=== PATIENT | male | born 1950 | race Caucasian/White ===

== ENCOUNTER 2021-02-08 13:31 | Emergency (ER) | payer OTHER ==
[2021-02-08] MEDS ORDERED: LIDOCAINE 1% MPF 30 ML VIAL ONE (14:31)
[2021-02-08] MEDS ORDERED: TETANUS & DIPHTHERIA TOX,ADULT 0.5 ML VIAL ONE (14:31)
[2021-02-08] MEDS ORDERED: LIDOCAINE 1% W/EPI 1:100,000 MDV 20 ML VIAL ONE (14:38)
--- NOTE | 2021-02-08 15:15 | RAD REPORT ---
EXAM DESCRIPTION: RAD - Knee Right 3 View - 02/08/2021 3:10 pm CLINICAL HISTORY: PAIN COMPARISON: No comparisons FINDINGS: Status post right total knee arthroplasty. No evidence of hardware complications. No fract ure is seen. Prominent prepatellar soft tissue swelling. IMPRESSION: No acute osseous abnormality involving the right knee.
--- NOTE | 2021-02-08 15:15 | RAD REPORT ---
EXAM DESCRIPTION: RAD - Tib Fib Left - 02/08/2021 3:09 pm CLINICAL HISTORY: PAIN COMPARISON: No comparisons FINDINGS: No fracture of the tibia or fibula is identified. Status post left total knee arthroplasty . No evidence for hardware complications. Reconstruction plate along the distal fibula without hardwa re complications. IMPRESSION: No acute osseous abnormality involving the tibia or fibula.
--- NOTE | 2021-02-08 16:25 | ER ---
Nurse's Notes [facility] Name: Bo Canas Age: 70 yrs Sex: Male : 1950 Arrival Date: 02/08/2021 Time: 13:38 Bed 16 Private MD: Diagnosis: Laceration without foreign body of lower leg;Pain in right knee;Skin tear right forearm Presentation: 02/08 13:40 Chief complaint: Right knee pain and swelling, laceration to left lower leg and right hb forearm after mechanical fall from standing. Coronavirus screen: At this time, the client does not indicate any symptoms associated with coronavirus-19. Ebola Screen: No symptoms or risks identified at this time. Initial Sepsis Screen: Does the patient meet any 2 criteria? No. Patient's initial sepsis screen is negative. Does the patient have a suspected source of infection? No. Patient's initial sepsis screen is negative. Risk Assessment: Do you want to hurt yourself or someone else? Patient reports no desire to harm self or others. Onset of symptoms was February 08, 2021. 13:40 Method Of Arrival: Wheelchair hb 13:40 Acuity: JENAE 4 hb - Immunization history:: Client reports receiving the 2nd dose of the Covid vaccine. - Social history:: Smoking status: Patient denies any tobacco usage or history of. Screenin:52 Abuse screen: Denies threats or abuse. Nutritional screening: No deficits noted. kh1 Tuberculosis screening: No symptoms or risk factors identified. Never had TB. Possible symptoms: None Risk factors: None. Fall Risk None identified. Fall in past 12 months (25 points). No secondary diagnosis (0 pts). No IV (0 pts). Ambulatory Aid- Crutches/Cane/Walker (15 pts). Gait- Normal/Bed Rest/Wheelchair (0 pts). Assessment: 13:52 General: Appears in no apparent distress. comfortable, Behavior is calm, cooperative, kh1 appropriate for age. Pain: Denies pain. Neuro: No deficits noted. Level of Consciousness is awake, alert, obeys commands, Oriented to person, place, time, situation, Appropriate for age Sign Installer are Reports. 15:00 Reassessment: Patient appears in no apparent distress at this time. No changes from kh1 previously documented assessment. Patient and/or family updated on plan of care and expected duration. Pain level reassessed. Patient is alert, oriented x 3, equal unlabored respirations, skin warm/dry/pink. Patient states symptoms have not improved. Vital Signs: 13:40 BP 120 / 73; Pulse 95; Resp 16; Temp 97.8; Pulse Ox 97% on R/A; Weight 112.94 kg; hb Height 6 ft. (182.88 cm); Pain 0/10; 13:53 BP 120 / 73; Pulse 95; Resp 18; Temp 97.8; Pulse Ox 97% on R/A; kh1 13:40 Body Mass Index 33.77 (112.94 kg, 182.88 cm) hb Vitals: 13:53 Cardiac Rhythm Assessment Regular. kh1 [place] Coma Score: 13:53 Eye Response: spontaneous(4). Verbal Response: oriented(5). Motor Response: obeys kh1 commands(6). Total: 15. ED Course: 13:38 Patient arrived in ED. hb 13:40 Arm band placed on. hb 13:42 Triage completed. hb 13:46 Doris Moraes is Primary Nurse. [facility] 13:50 Susy Varghese FNP-C is [facility]. kb 13:50 Jaxson Bhandari MD is Attending Physician. kb 13:54 Patient has correct armband on for positive identification. Fall risk band placed. Bed [facility] in low position. Call light in reach. Side rails up X 1. Adult w/ patient. quality assurance monitor final on. Pulse ox on. NIBP on. 15:09 Tib Fib Left XRAY In Process Unspecified. EDMS 15:10 Knee Right 3 View XRAY In Process Unspecified. EDMS 16:38 Assist provider with laceration repair on left leg that was using sutures. Set up tray. kh1 Performed by Susy JACKSON Dressed with 4X4s. Patient did not have IV access during this emergency room visit. 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 Exp: kh1 08/06/2022. Lot #: [id number]. } Route: IM; Site: left deltoid; Outcome: 16:24 Discharge ordered by MD. kb 16:39 Discharged to home ambulatory. kh1 16:39 Condition: good 16:39 Discharge instructions given to patient, Instructed on discharge instructions, follow up and referral plans. wound care, Demonstrated understanding of instructions, follow-up care, wound care. 16:42 Patient left the ED. kh1 Signatures: Dispatcher [employer] EDSusy Boyle, MANUEL CLINE-Juanita Caro RN RN Doris Dickens 1
--- NOTE | 2021-02-08 16:25 | EDPHYS ---
Physician Documentation [facility] Name: Bo Canas Age: 70 yrs Sex: Male : 1950 Arrival Date: 02/08/2021 Time: 13:38 Bed 16 Private MD: ED Physician Jaxson Bhandari HPI: 02/08 16:17 This 70 yrs old Male presents to ER via Wheelchair with complaints of kb Laceration To Leg. 16:17 The patient has a laceration related to: falling from a standing position, occurred at home, and there are no complicating factors. The injury was accidental. The laceration(s) is(are) located on the left baldwin and medial aspect of left calf. Onset: The symptoms/episode began/occurred just prior to arrival. Associated signs and symptoms: Pertinent positives: heavy bleeding, Pertinent negatives: deformity, dizziness, loss of consciousness, numbness distal to injury, suspected foreign body. The patient has not experienced similar symptoms in the past. The patient has not recently seen a physician. 16:29 Pt states he tripped and fell into the grill. Cut his leg on the metal part of the kb grill. - Immunization history:: Client reports receiving the 2nd dose of the Covid vaccine. - Social history:: Smoking status: Patient denies any tobacco usage or history of. ROS: 16:17 Constitutional: Negative for fever, chills, and weight loss. kb 16:17 MS/extremity: Positive for pain, swelling, tenderness, of the right knee. 16:17 Skin: Positive for laceration(s), of the left baldwin and medial aspect of left calf. 16:17 All other systems are negative. Exam: 16:16 Constitutional: This is a well developed, well nourished patient who is awake, alert, kb and in no acute distress. Head/Face: Normocephalic, atraumatic. ENT: Moist Mucous membranes Respiratory: Respirations even and unlabored. No increased work of breathing, no retractions or nasal flaring. Neuro: Awake and alert, GCS 15, oriented to person, place, time, and situation. Moves all extremities. Normal gait. Psych: Awake, alert, with orientation to person, place and time. Behavior, mood, and affect are within normal limits. 16:16 Musculoskeletal/extremity: Extremities: grossly normal except: noted in the right knee: pain, swelling, tenderness, ROM: intact in all extremities, Circulation is intact in all extremities. Sensation intact. 16:16 Skin: injury, laceration(s), the wound is approximately 2 cm(s), of the medial aspect of left calf, the second wound is approximately 5 cm(s), of the left baldwin, that can be described as clean, no foreign body, linear, with mild bleeding, with moderate bleeding, skin tear right forearm. Vital Signs: 13:40 BP 120 / 73; Pulse 95; Resp 16; Temp 97.8; Pulse Ox 97% on R/A; Weight 112.94 kg; hb Height 6 ft. (182.88 cm); Pain 0/10; 13:53 BP 120 / 73; Pulse 95; Resp 18; Temp 97.8; Pulse Ox 97% on R/A; kh1 13:40 Body Mass Index 33.77 (112.94 kg, 182.88 cm) hb [place] Coma Score: 13:53 Eye Response: spontaneous(4). Verbal Response: oriented(5). Motor Response: obeys kh1 commands(6). Total: 15. Laceration: 16:13 Wound Repair of 2cm ( 0.8in ) subcutaneous laceration to medial aspect of left calf. kb Linear shaped.. Distal neuro/vascular/tendon intact. Anesthesia: Wound infiltrated with 2 mls of 1% lidocaine w/ Epi. Wound prep: Extensive cleansing with betadine by me, Wound irrigation with saline by me. Skin closed with 3 4-0 Prolene using cruciate sutures. Patient tolerated well. 16:13 Wound Repair of 5cm ( 2.0in ) subcutaneous laceration to left baldwin. Linear shaped.. kb Distal neuro/vascular/tendon intact. Anesthesia: Wound infiltrated with 4 mls of 1% lidocaine w/ Epi. Wound prep: Extensive cleansing with betadine by me, Wound irrigation with saline by me. Skin closed with 7 4-0 Prolene using 3 interrupted sutures, 4 crutiate sutures. Patient tolerated well. MDM: 13:50 Patient medically screened. kb 16:13 Data reviewed: vital signs, nurses notes. Data interpreted: Pulse oximetry: on room air kb is 97 %. Interpretation: normal. Counseling: I had a detailed discussion with the patient and/or guardian regarding: the historical points, exam findings, and any diagnostic results supporting the discharge/admit diagnosis, radiology results, the need for outpatient follow up, a family practitioner, to return to the emergency department if symptoms worsen or persist or if there are any questions or concerns that arise at home. 17:30 Differential diagnosis: superficial laceration, fracture, foreign body. kb 02/08 13:58 Order name: Tib Fib Left XRAY; Complete Time: 15:20 kb 02/08 13:58 Order name: Knee Right 3 View XRAY; Complete Time: 15:20 kb 02/08 13:58 Order name: Dressing - Wound; Complete Time: 14:16 kb 02/08 13:58 Order name: Gloves, Sterile; Complete Time: 14:16 kb 02/08 13:58 Order name: Prolene, Sutures; Complete Time: 14:16 kb 02/08 13:58 Order name: Setup Suture Tray; Complete Time: 14:16 kb 02/08 16:25 Order name: Jean Wrap kb Administered Medications: 14:16 Drug: Lidocaine-Epinephrine -1%: (1:100,000) 1 vials Volume: 20 ml; Route: Infiltration;kh1 14:16 Drug: Tetanus-Diphtheria Toxoid Adult 0.5 ml {[employer] 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 Exp: kh1 08/06/2022. Lot #: [id number]. } Route: IM; Site: left deltoid; Disposition: 17:25 Co-signature as Attending Physician, Jaxson Bhandari MD I agree with the assessment and rn plan of care. Attestation: The patient's history, exam findings, diagnostics, and a summary of any interventions or procedures was reviewed in detail with Susy JACKSON. Disposition Summary: 02/08/21 16:24 Discharge Ordered Location: Home kb Condition: Stable kb Diagnosis - Laceration without foreign body of lower leg kb - Pain in right knee kb - Skin tear right forearm kb Followup: kb - With: Private Physician - When: 2 - 3 days - Reason: Recheck today's complaints, Continuance of care, Re-evaluation by your physician Followup: kb - With: Emergency Department - When: As needed - Reason: Worsening of condition Discharge Instructions: - Discharge Summary Sheet kb - Musculoskeletal Pain kb - Laceration Care, Adult, [id number] kb - Skin Tear, [id number] kb Forms: - Medication Reconciliation Form kb - Thank You Letter kb - Antibiotic Education kb - Prescription Opioid Use kb Signatures: Dispatcher [employer] Susy Allen, SON-C SON-Jaxson Acuna MD MD rn Baxter, Heather, RN RN hb Harris, Doris [facility]
[2021-02-08 16:48] VITALS: BP 120/73; TEMP 97.8; O2SAT 97
== END 2021-02-08 16:42 | disposition home or self-care (01) ==
LOC: ER 13:31
PROC: 0JQP0ZZ Repair Left Lower Leg Subcutaneous Tissue and Fascia, Open Approach (ICD-10-PCS; principal; 2021-02-08)
DX: S81.812A Laceration without foreign body, left lower leg, initial encounter (principal); S51.811A Laceration without foreign body of right forearm, initial encounter; W01.198A Fall on same level from slipping, tripping and stumbling with subsequent striking against other object, initial encounter; Y92.009 Unspecified place in unspecified non-institutional (private) residence as the place of occurrence of the external cause; Z23 Encounter for immunization
CPT/HCPCS: 90471; 90714; 99284

== ENCOUNTER → 2023-07-03 | Emergency (ER) | payer OTHER ==
[2023-07-03 11:44] LABS: Absolute Lymphocytes (CBC) 1.1 K/uL (0.7-4.9); Hematocrit 38.9 % (39.6-49.0); Lymphocytes % 20.9 % (15.3-44.8); MCV 81.9 fL (80-100); MPV 7.8 fL (7.6-11.3); Platelets 193 thou/uL (152-406); RBC Red Blood Cell Count 4.75 M/uL (4.33-5.43)
[2023-07-03 12:02] LABS: Albumin 3.2 g/dL (3.4-5.0); Bilirubin Direct 0.2 mg/dL (0-0.2); Bilirubin Indirect, Calculated 0.2 mg/dL (0.2-0.8); Bilirubin Total 0.4 mg/dL (0.2-1.0); Potassium 3.9 mEq/L (3.5-5.1); Protein, Total 7.1 g/dL (6.4-8.2); Troponin High Sensitivity 13.8 pg/mL (<58.9)
--- NOTE | 2023-07-03 12:39 | RAD REPORT ---
EXAM DESCRIPTION: RAD - Chest Single View - 07/03/2023 12:28 pm CLINICAL HISTORY: CHEST PAIN COMPARISON: No comparisons FINDINGS: Lines: None. Lungs: No evidence of edema or pneumonia. Pleural: No significant pleural effusions or pneumothorax. Cardiac: Cardiomegaly. Mediastinum: Within normal limits. Bones: No acute fractures. Other: None IMPRESSION: No acute cardiopulmonary disease.
--- NOTE | 2023-07-03 14:17 | ER ---
Nurse's Notes [facility] Name: Bo Canas Age: 73 yrs Sex: Male : 1950 Arrival Date: 07/03/2023 Time: 10:59 Bed 7 Private MD: Diagnosis: Chest pain, unspecified Presentation: 07/03 11:07 Chief complaint: Patient states: Chest pain, worse with deep breathing, since yesterday.[facility] 11:07 Coronavirus screen: Vaccine status: Patient reports receiving the 2nd dose of the covid nj1 vaccine. Ebola Screen: Patient denies travel to an Ebola-affected area in the 21 days before illness onset. Initial Sepsis Screen: Does the patient meet any 2 criteria? No. Patient's initial sepsis screen is negative. Does the patient have a suspected source of infection? No. Patient's initial sepsis screen is negative. Risk Assessment: Do you want to hurt yourself or someone else? Patient reports no desire to harm self or others. Onset of symptoms was July 02, 2023. 11:07 Method Of Arrival: Wheelchair nj 11:07 Acuity: JENAE 3 nj Historical: - Allergies: 11:16 No Known Allergies; nj1 - Home Meds: 11:44 bupropion HCl 150 mg oral tablet 3 tabs daily [Active]; Vitamin D Oral daily [Active]; iw omeprazole 20 mg Oral tablet, delayed release (enteric coated) daily [Active]; Vitamin B-12 Oral daily [Active]; pramipexole oral 2 tabs daily [Active]; apixaban 5 mg oral tablet 2 times per day [Active]; duloxetine 60 mg oral capsule,delayed release (e.c.) daily [Active]; sotalol 80 mg Oral tablet 2 times per day [Active]; Iron CR Oral daily [Active]; tamsulosin 0.4 mg oral capsule daily [Active]; inhaler for COPD [Active]; - PMHx: 11:16 Hypertensive disorder; Chronic obstructive lung disease; Atrial fibrillation; nj1 Hypercholesterolemia; Restless legs syndrome; Dementia; - Immunization history:: Client reports receiving the 2nd dose of the Covid vaccine. - Social history:: Smoking status: Patient denies any tobacco usage or history of. - Family history:: not pertinent. Screenin:44 [facility] Fall Risk Assessment (Adult) Score/Fall Risk Level 0 - 2 = Low Risk. Abuse iw screen: Denies threats or abuse. Denies injuries from another. Nutritional screening: No deficits noted. Tuberculosis screening: No symptoms or risk factors identified. Assessment: 11:48 Pain: Complains of pain in chest. Cardiovascular: Rhythm is regular. iw 11:49 General: Appears in no apparent distress. Behavior is calm, cooperative. Pain: iw Complains of pain in chest Pain does not radiate. Pain began 1 day ago. Is intermittent, episodic. Neuro: Level of Consciousness is awake, alert, obeys commands, Oriented to person, place, time, situation, Moves all extremities. Full function. Cardiovascular: Reports chest pain, shortness of breath, Capillary refill < 3 seconds in bilateral fingers Patient's skin is warm and dry. Respiratory: Respiratory effort is even, unlabored, Respiratory pattern is regular, symmetrical. GI: Abdomen is non-distended. Derm: Skin is normal. Musculoskeletal: Range of motion: intact in all extremities. 14:42 Reassessment: Patient appears in no apparent distress at this time. Patient and/or iw family updated on plan of care and expected duration. Pain level reassessed. Patient is alert, oriented x 3, equal unlabored respirations, skin warm/dry/pink. 19:00 General: Appears in no apparent distress. comfortable, Behavior is calm, cooperative. jw7 19:00 Pain: Complains of pain in chest Pain does not radiate. Quality of pain is described as jw7 pressure, Pain began 1 day ago. Is intermittent, episodic. Neuro: Smith Agitation-Sedation Scale (RASS): 0 - Alert and Calm Level of Consciousness is awake, alert, obeys commands, Oriented to person, place, time, situation. Cardiovascular: Reports chest pain, Capillary refill < 3 seconds Patient's skin is warm and dry. Rhythm is regular. Respiratory: Airway is patent Trachea midline Respiratory effort is even, unlabored, Respiratory pattern is regular, symmetrical. GI: Abdomen is non-distended. : No deficits noted. No signs and/or symptoms were reported regarding the genitourinary system. EENT: No deficits noted. No signs and/or symptoms were reported regarding the EENT system. Derm: Skin is intact, is healthy with good turgor, Skin is dry, Skin is normal, Skin temperature is warm. Musculoskeletal: Circulation, motion, and sensation intact. Range of motion: intact in all extremities. 19:00 General: Received report from MANDI Valiente. Steffanie stated she had tried to call report to [facility] the [place] several times with no answer. . 20:10 Reassessment: Patient appears in no apparent distress at this time. Patient and/or [facility] family updated on plan of care and expected duration. Pain level reassessed. Patient is alert, oriented x 3, equal unlabored respirations, skin warm/dry/pink. 20:42 General: Attempted to call report, placed on hold, waited 12 minutes with no answer. . jw7 21:00 Reassessment: Patient appears in no apparent distress at this time. Patient and/or [facility] family updated on plan of care and expected duration. Pain level reassessed. Patient is alert, oriented x 3, equal unlabored respirations, skin warm/dry/pink. Patient denies pain at this time. 21:07 Reassessment: ATTEMPTED TO GIVE REPORT. ha1 21:20 Reassessment: ATTEMPTED TO GIVE REPORT. NOTIFIED PARISH VISITOR. PARISH VISITOR STATES" I CAN'T ha1 REACH THE NURSE WELL CALL BACK LATER". 21:45 Reassessment: ATTEMPTED TO GIVE REPORT. ha1 22:00 Reassessment: Patient and/or family updated on plan of care and expected duration. Pain ha1 level reassessed. Patient is alert, oriented x 3, equal unlabored respirations, skin warm/dry/pink. 22:08 General: Report Given to MANDI Álvarez. [facility] Vital Signs: 11:07 BP 152 / 90; Pulse 82; Resp 20; Temp 97.6(O); Pulse Ox 95% on R/A; Weight 113.4 kg; nj1 Height 6 ft. 0 in. ; Pain 6/10; 12:56 BP 151 / 77; Pulse 84; Resp 18; Pulse Ox 95% on R/A; ph 19:00 BP 157 / 89; Pulse 88; Resp 20 S; Pulse Ox 97% on R/A; jw7 20:00 BP 145 / 82; Pulse 83; Resp 18 S; Pulse Ox 95% on R/A; jw7 21:00 BP 156 / 85; Pulse 85; Resp 24 S; Pulse Ox 96% on R/A; jw7 22:00 BP 160 / 99; Pulse 83; Resp 21 S; Pulse Ox 95% on R/A; jw7 11:07 Body Mass Index 33.91 (113.40 kg, 182.88 cm) nj1 11:07 Pain Scale: Adult nj1 ED Course: 11:06 Patient arrived in ED. mg5 11:06 Tanvir Willard MD is Attending Physician. rt 11:16 Triage completed. nj1 11:17 Arm band placed on. nj1 11:23 Steffanie Lamas, RN is Primary Nurse. iw 11:42 EKG done, by ED staff, reviewed by Tanvir Willard MD. em1 11:44 Initial lab(s) drawn, by me, sent to lab. Inserted saline lock: 20 gauge in right iw forearm, using aseptic technique. Blood collected. 12:31 XRAY Chest (1 view) In Process Unspecified. EDMS 14:20 initiated transfer to [facility], faxed chart to ER as requested by transfer center. bd 19:00 Patient has correct armband on for positive identification. Bed in low position. Call jw7 light in reach. Client placed on continuous cardiac and pulse oximetry monitoring. NIBP monitoring applied. 19:00 Patient maintains SpO2 saturation greater than 95% on room air. jw7 21:20 Primary Nurse role handed off by Steffanie Lamas, MANDI ap3 22:32 No provider procedures requiring assistance completed. Patient transferred, IV remains jw7 in place. 22:35 Provided Education on: need for transfer. jw7 23:30 [facility] not able to transport called [facility] advised it would be 40-45 mins. vk 07/04 00:00 patient transported to facility by EMS [facility] ambulance. vk Administered Medications: No medications were administered Medication: 07/03 11:49 VIS not applicable for this client. iw Outcome: 14:16 ER care complete, transfer ordered by . rt 22:32 Transferred by ground EMS to [facility] jw7 22:32 Condition: stable 22:32 Discharge instructions given to patient, Instructed on the need for transfer, Demonstrated understanding of instructions, 22:35 Patient left the ED. jw7 Signatures: Dispatcher [employer] EDMS Nury Watkins Steffanie Lamas, MANDI RAYMOND iw Martinez Acevedo em1 Linda Dos Santos RN RN Maribel Cisneros RN RN ap3 Ariadna Carrero RN RN jw7 Carlie Schumacher RN RN ha1 Tanvir Willard MD MD rt Brittney Ward RN RN nj1 Paula Devlin mg5 Ronda Dewitt
--- NOTE | 2023-07-03 14:17 | EDPHYS ---
Physician Documentation [facility] Name: Bo Canas Age: 73 yrs Sex: Male : 1950 Arrival Date: 07/03/2023 Time: 10:59 Bed 7 Private MD: ED Physician Tanvir Willard HPI: 07/03 11:45 This 73 yrs old Male presents to ER via Wheelchair with complaints of Chest Pain. rt 11:45 Patient presents to the ED with a substernal chest pain starting since yesterday. He rt states it is worse when he takes a deep breath. Denies any difficulty breathing currently. Denies other acute complaints, symptoms are moderate in severity, no other aggravating or alleviating factors.. Historical: - Allergies: 11:16 No Known Allergies; nj1 - Home Meds: 11:44 bupropion HCl 150 mg oral tablet 3 tabs daily [Active]; Vitamin D Oral daily [Active]; iw omeprazole 20 mg Oral tablet, delayed release (enteric coated) daily [Active]; Vitamin B-12 Oral daily [Active]; pramipexole oral 2 tabs daily [Active]; apixaban 5 mg oral tablet 2 times per day [Active]; duloxetine 60 mg oral capsule,delayed release (e.c.) daily [Active]; sotalol 80 mg Oral tablet 2 times per day [Active]; Iron CR Oral daily [Active]; tamsulosin 0.4 mg oral capsule daily [Active]; inhaler for COPD [Active]; - PMHx: 11:16 Hypertensive disorder; Chronic obstructive lung disease; Atrial fibrillation; nj1 Hypercholesterolemia; Restless legs syndrome; Dementia; - Immunization history:: Client reports receiving the 2nd dose of the Covid vaccine. - Social history:: Smoking status: Patient denies any tobacco usage or history of. - Family history:: not pertinent. ROS: 11:45 Constitutional: Negative for fever, chills, and weight loss, Respiratory: Negative for rt shortness of breath, cough, wheezing, and pleuritic chest pain, Abdomen/GI: Negative for abdominal pain, nausea, vomiting, diarrhea, and constipation, MS/Extremity: Negative for injury and deformity, Skin: Negative for injury, rash, and discoloration, Neuro: Negative for headache, weakness, numbness, tingling, and seizure, Psych: Negative for depression, anxiety, suicide ideation, homicidal ideation, and hallucinations, 11:45 Cardiovascular: Positive for chest pain, Negative for edema, Exam: 11:45 Constitutional: This is a well developed, well nourished patient who is awake, alert, rt and in no acute distress. Head/Face: Normocephalic, atraumatic. Chest/axilla: Normal chest wall appearance and motion. Nontender with no deformity. No lesions are appreciated. Cardiovascular: Regular rate and rhythm with a normal S1 and S2. No gallops, murmurs, or rubs. Normal PMI, no JVD. No pulse deficits. Respiratory: Lungs have equal breath sounds bilaterally, clear to auscultation and percussion. No rales, rhonchi or wheezes noted. No increased work of breathing, no retractions or nasal flaring. Abdomen/GI: Soft, non-tender, with normal bowel sounds. No distension or tympany. No guarding or rebound. No evidence of tenderness throughout. Skin: Warm, dry with normal turgor. Normal color with no rashes, no lesions, and no evidence of cellulitis. MS/ Extremity: Pulses equal, no cyanosis. Neurovascular intact. Full, normal range of motion. Neuro: Awake and alert, GCS 15, oriented to person, place, time, and situation. Cranial nerves II-XII grossly intact. Motor strength 5/5 in all extremities. Sensory grossly intact. Cerebellar exam normal. Normal gait. Psych: Awake, alert, with orientation to person, place and time. Behavior, mood, and affect are within normal limits. 11:45 ECG was reviewed by the Attending Physician. Vital Signs: 11:07 BP 152 / 90; Pulse 82; Resp 20; Temp 97.6(O); Pulse Ox 95% on R/A; Weight 113.4 kg; nj1 Height 6 ft. 0 in. ; Pain 6/10; 12:56 BP 151 / 77; Pulse 84; Resp 18; Pulse Ox 95% on R/A; ph 19:00 BP 157 / 89; Pulse 88; Resp 20 S; Pulse Ox 97% on R/A; jw7 20:00 BP 145 / 82; Pulse 83; Resp 18 S; Pulse Ox 95% on R/A; jw7 21:00 BP 156 / 85; Pulse 85; Resp 24 S; Pulse Ox 96% on R/A; jw7 22:00 BP 160 / 99; Pulse 83; Resp 21 S; Pulse Ox 95% on R/A; jw7 11:07 Body Mass Index 33.91 (113.40 kg, 182.88 cm) nj1 11:07 Pain Scale: Adult nj1 MDM: 11:07 Patient medically screened. rt 16:59 Differential diagnosis: abnormal EKG, acute myocardial infarction, coronary artery rt disease chest wall pain. HEART Score: History: Moderately Suspicious (1), ECG: Non specific repolarization disturbance / LBTB / PM (1), Age: > or = 65 years (2), Risk Factors: > or = 3 Risk factors for atherosclerotic disease (2), Troponin: < or = 1 x Normal Limit (0), Total Score = 6. The patient was not given aspirin in the Emergency Department. Aspirin not given, patient refused. Data reviewed: vital signs, nurses notes, lab test result(s), EKG, radiologic studies. Independent interpretation of the following test(s) in the Emergency Department X-Ray: My interpretation is No consolidations and interpretation of x-ray images. Care significantly affected by the following chronic conditions: Hypertension, Chronic Obstructive Pulmonary Disease. Counseling: I had a detailed discussion with the patient and/or guardian regarding the historical points, exam findings, and any diagnostic results supporting the discharge/admit diagnosis, lab results, radiology results, the need for further work-up and treatment in the hospital. 07/03 11:14 Order name: Basic Metabolic Panel; Complete Time: 12:08 rt 07/03 11:14 Order name: CBC with Diff; Complete Time: 12: rt 07/03 11:14 Order name: LFT's; Complete Time: 12:08 rt 07/03 11:14 Order name: Magnesium; Complete Time: 12:08 rt 07/03 11:14 Order name: Troponin HS; Complete Time: 12:08 rt 07/03 11:14 Order name: XRAY Chest (1 view); Complete Time: 12:48 rt 07/03 11:14 Order name: EKG; Complete Time: 11:15 rt 07/03 11:14 Order name: Cardiac monitoring; Complete Time: 11:42 rt 07/03 11:14 Order name: EKG - Nurse/Tech; Complete Time: 11:42 rt 07/03 11:14 Order name: IV Saline Lock; Complete Time: 44 rt 07/03 11:14 Order name: Labs collected and sent; Complete Time: rt 07/03 11:14 Order name: O2 Per Protocol; Complete Time: rt 07/03 11:14 Order name: O2 Sat Monitoring; Complete Time: :44 rt EC:45 Rate is 65 beats/min. Rhythm is regular, Normal Sinus Rhythm with PACs. QRS Stuart is rt Normal. AL interval is normal. QRS interval is normal. QT interval is normal. No Q waves. Clinical impression: NSR w/ Non-specific ST/T Changes. Administered Medications: No medications were administered Disposition Summary: 07/03/23 14:16 Transfer Ordered Notes: Transfer Location: [facility] rt Reason: Patient request rt Condition: Stable rt Problem: new rt Symptoms: are unchanged rt Accepting Physician: (07/03/23 22:35) jw7 Diagnosis - Chest pain, unspecified rt Forms: - Medication Reconciliation Form rt - SBAR form rt Signatures: Dispatcher [employer] EDSteffanie Darby RN RN iw Ariadna Carrero RN RN jw7 Tanvir Willard MD MD rt Brittney Ward RN RN nj1 Corrections: (The following items were deleted from the chart) 22:35 14:16 rt jw7
--- NOTE | 2023-07-03 14:27 | EKG ---
Test Date: 2023-07-03 Test Time: 11:38:49 Duplicating Machine Servicer: FLORENTINO MEASUREMENT RESULTS: Intervals: Rate: 65 RI: 212 QRSD: 104 QT: 420 QTc: 436 Artie: P: 73 RI: 212 QRS: 12 T: 101 INTERPRETIVE STATEMENTS: Sinus rhythm with 1st degree AV block with premature atrial complexes Nonspecific ST and T wave abnormality Abnormal ECG No previous ECG available for comparison Electronically Signed On 07-03-23 14:25:46 INSTRUMENTATION TECHNOLOGIST by Preston Julian
[2023-07-03 23:08] VITALS: BP 160/99; TEMP 97.6; O2SAT 95
== END ==
LOC: ER 10:59
DX: R07.9 Chest pain, unspecified (principal); I10 Essential (primary) hypertension; J44.9 Chronic obstructive pulmonary disease, unspecified
CPT/HCPCS: 36415; 71045; 80048; 80076; 83735; 84484; 85025; 93005; 99285